=== PATIENT | male | born 1955 | race Caucasian/White ===

== ENCOUNTER → 2016-07-28 | Outpatient (CLI) | payer OTHER ==
[~2016-07-28] VITALS: Ht 180.3 cm; Wt 129.3 kg
[~2016-07-28] MED LIST: DAILY MULTIPLE1 EACH PO
== END | disposition home or self-care (01) ==
LOC: AMB 06:48
DX: Z12.11 Encounter for screening for malignant neoplasm of colon (principal); D12.3 Benign neoplasm of transverse colon; K63.5 Polyp of colon; K64.8 Other hemorrhoids
CPT/HCPCS: 88305; B4087